=== PATIENT | female | born 1995 | race American Indian/Alaskan Native ===

== ENCOUNTER 2017-02-14 12:37 | Emergency (ER) | payer OTHER ==
[2017-02-14 12:37] VITALS: BMI 31.2
[2017-02-14 13:09] VITALS: BP 109/71; PULSE 98; RESP 18; TEMP 98.1; O2SAT 99
[2017-02-14] MEDS ORDERED: DiphenhydrAMINE 50 mg/ml Inj IM STA (14:10)
--- NOTE | 2017-02-14 14:14 | ED PDOC ---
Arrival/HPI - General Historian: Patient - General Chief Complaint: Abnormal Skin Integrity Time Seen by Provider: 02/14/17 13:26 - History of Present Illness Narrative History of Present Illness (Text): 02/14/17 17:38 Patient reports acute onset of diffuse itchiness to her body and hives to her bilateral inner thighs after eating a sandwich at noon and her symptoms developed immediately afterwards. He reports taking one tablet of Benadryl prior to arrival in the Emergency Department. Patient states that she is eating that sandwich prior with no reaction. Otherwise patient reports (-) throat swelling, (-) tongue / lip swelling, (-) dyspnea, (-) cough, (-) wheezing, (-) abdominal pain, (-) nausea (-) vomiting. The patient has no history of allergic reactions. PMD Shawn (Philip ASENCIO,Vi Carlson) Past Medical History - Provider Review Nursing Documentation Reviewed: Yes - Infectious Disease Hx of Infectious Diseases: None - Psychiatric Hx Substance Use: Yes (marijuana) Family/Social History - Physician Review Nursing Documentation Reviewed: Yes Family/Social History: No Known Family HX Smoking Status: Current Some Days Smoker Hx Alcohol Use: Yes Frequency of alcohol use: Socially Hx Substance Use: Yes (marijuana) Allergies/Home Meds Allergies/Adverse Reactions: Allergies No Known Allergies Allergy (Verified 02/14/17 13:10) Review of Systems - Review of Systems Constitutional: Normal. absent: Fatigue, Weight Change, Fevers ENT: Normal. absent: Hearing Changes, Tinnitus, TMJ Pain Respiratory: Normal. absent: SOB, Cough, Sputum Cardiovascular: Normal. absent: Chest Pain, Palpitations, Edema Musculoskeletal: Normal. absent: Arthralgias, Back Pain, Neck Pain Skin: Normal, Rash, Pruritis. absent: Skin Lesions, Laceration Physical Exam - Physical Exam Narrative Physical Exam (Text): 02/14/17 17:40 GENERAL APPEARANCE: Patient is awake, alert, oriented x 3, in no acute distress. SKIN: (+) Multiple erythematous urticarial lesions to the medial aspect of both thighs. Otherwise (-) excoriations, (-) drainage, (-) crusting of lesions is present. HENT: (-) conjunctival injection, (-) chemosis. Oropharynx: clear (-) tongue or lip swelling, (-) tonsillar exudates, (-) erythema. Airway: patent (-) stridor, (-) hoarseness. Mucous membranes moist. Nares: Patent (-) rhinorrhea. NECK: (-) lymphadenopathy, (-) tenderness. CARDIOVASCULAR: Normal rate and rhythm. (-) murmur, (-) gallop. CHEST: (-) rales, (-) wheezing, (-) dyspnea, (-) stridor. Breath sounds equal bilaterally. ABDOMEN: Soft. (-) tenderness, (-) distention, (-) HSM. NEURO: Mental status: Patient is alert, oriented, and with normal strength and tone. (Philip ASENCIO,Vi Carlson) Vital Signs Temp Pulse Resp BP Pulse Ox 02/14/17 13:06 98.1 F 98 H 18 109/71 99 Medical Decision Making ED Course and Treatment: I was available for consultation during PA evaluation. The chart was reviewed by me, and I agree with disposition. The documented history was done by the physician automatic nailing machine feeder. The documented physical exam was done by the physician automatic nailing machine feeder. The documented procedures were done by the physician automatic nailing machine feeder. (Luc Brandt) 02/14/17 14:11 22 yo F c/o diffuse itchiness with hives to the inner thighs. Patient medicated with prednisone PO, Benadryl IM and Pepcid PO. Based on history, exam and diagnostic results plan will be for outpatient follow -up. Prescription provided. Patient states she fully agrees with and understands discharge instructions. States that she agrees with the plan and disposition. Verbalized and repeated discharge instructions and plan. I have given the patient opportunity to ask any additional questions. Follow up with primary care physician in 1-2 days without fail. Advised to take medication as prescribed. Return to the emergency room at any time for any new or worsening symptoms. (Philip ASENCIO,Vi Carlson) - Medication Orders Current Medication Orders: Discontinued Medications Diphenhydramine HCl (Benadryl) 25 mg IM STAT STA Stop: 02/14/17 14:11 Last Admin: 02/14/17 14:20 Dose: 25 mg Famotidine (Pepcid) 40 mg PO STAT STA Stop: 02/14/17 14:11 Last Admin: 02/14/17 14:20 Dose: 40 mg Prednisone (Prednisone Tab) 40 mg PO STAT STA Stop: 02/14/17 14:11 Last Admin: 02/14/17 14:20 Dose: 40 mg - PA / NETWORK DESKTOP SUPPORT SPECIALIST / Resident Statement / has reviewed & agrees with the documentation as recorded. Disposition/Present on Arrival - Present on Arrival Any Indicators Present on Arrival: No History of DVT/PE: No History of Uncontrolled Diabetes: No Urinary Catheter: No History of Decub. Ulcer: No History Surgical Site Infection Following: None - Disposition Have Diagnosis and Disposition been Completed?: Yes Disposition Time: 14:12 Patient Plan: Discharge - Disposition Diagnosis: Allergic reaction Disposition: HOME/ ROUTINE Condition: GOOD Discharge Instructions (ExitCare): Urticaria (ED), General Allergic Reaction ( ED) Print Language: MALIAN Additional Instructions: Thank you for letting us take care of you today. You were treated for hives, allergic reaction. The emergency medical care you received today was directed at your acute symptoms. If you were prescribed any medication, please fill it and take as directed. It may take several days for your symptoms to resolve. Return to the Emergency Department if your symptoms worsen, do not improve, or if you have any other problems. Please contact your doctor in 2 days for re-evaluation and follow up / or call one of the physicians/clinics you have been referred to that are listed on the Patient Visit Information form that is included in your discharge packet. Bring any paperwork you were given at discharge with you along with any medications you are taking to your follow up visit. Our treatment cannot replace ongoing medical care by a primary care provider (PCP) outside of the emergency department. Thank you for allowing the [facility] team to be part of your care today. Prescriptions: DiphenhydrAMINE [Benadryl] 25 mg PO TID #20 cap Famotidine [Pepcid] 40 mg PO DAILY #20 tablet predniSONE [predniSONE Tab] 40 mg PO DAILY #8 tab Referrals: Ophelia Escobar MD [Primary Care Provider] - Follow up with primary Forms: WORK NOTE
== END 2017-02-14 14:38 | disposition home or self-care (01) ==
LOC: ED 12:37
DX: T78.1XXA Other adverse food reactions, not elsewhere classified, initial encounter (principal); L50.9 Urticaria, unspecified
CPT/HCPCS: 96372; 99282; J1200

== ENCOUNTER 2017-05-25 18:59 | Emergency (ER) | payer OTHER ==
[2017-05-25 18:59] VITALS: BMI 31.2
[2017-05-25 19:52] VITALS: PULSE 78; RESP 18; TEMP 99; O2SAT 99
--- NOTE | 2017-05-25 19:53 | ED PDOC ---
Arrival/HPI - General Chief Complaint: Female Genitourinary Time Seen by Provider: 05/25/17 19:44 Historian: Patient - History of Present Illness Narrative History of Present Illness (Text): 05/25/17 19:49 22yr old female presents today with dysuria and urinary frequency since last night. Patient states last night she was going to the bathroom more frequently. Patient states today she developed dysuria. She denies vaginal bleeding or vaginal discharge. Denies abdominal pain. No chest pain or shortness of breath. Denies fevers or chills. Denies nausea vomiting diarrhea or constipation. Denies back pain. No medications taken for pain at home. Patient's that she is a history of urinary tract infections in the past. Time/Duration: Other (last night) Symptom Onset: Sudden Symptom Course: Intermittent Quality: Burning Severity Level: 2 Past Medical History - Provider Review Nursing Documentation Reviewed: Yes - Travel History Have you recently traveled outside [place] w/in the past 3 mons?: No - Infectious Disease Hx of Infectious Diseases: None - Tetanus Immunization Tetanus Immunization: Unknown - Psychiatric Hx Substance Use: Yes (marijuana) Family/Social History - Physician Review Nursing Documentation Reviewed: Yes Family/Social History: Unknown Family HX Smoking Status: Current Some Days Smoker Hx Alcohol Use: Yes Hx Substance Use: Yes (marijuana) Allergies/Home Meds Allergies/Adverse Reactions: Allergies No Known Allergies Allergy (Verified 02/14/17 13:10) Review of Systems - Review of Systems Constitutional: absent: Fatigue, Fevers Respiratory: absent: SOB, Cough Cardiovascular: absent: Chest Pain, Palpitations Gastrointestinal: absent: Abdominal Pain, Nausea, Vomiting Genitourinary Female: Dysuria, Frequency, Hematuria. absent: Urine Output Changes, Vaginal Bleeding, Vaginal Discharge Musculoskeletal: absent: Arthralgias, Back Pain, Neck Pain Skin: absent: Rash, Pruritis Neurological: absent: Dizziness Psychiatric: absent: Anxiety, Depression Physical Exam Vital Signs Reviewed: Yes Vital Signs Temp Pulse Resp Pulse Ox 05/25/17 19:39 99.0 F 78 18 99 Temperature: Afebrile Blood Pressure: Normal Pulse: Regular Respiratory Rate: Normal Appearance: Positive for: Well-Appearing, Non-Toxic, Comfortable Pain Distress: None Mental Status: Positive for: Alert and Oriented X 3 - Systems Exam Head: Present: Atraumatic Mouth: Present: Moist Mucous Membranes Neck: Present: Normal Range of Motion Respiratory/Chest: Present: Clear to Auscultation, Good Air Exchange. No: Respiratory Distress, Accessory Muscle Use Cardiovascular: Present: Regular Rate and Rhythm, Normal S1, S2. No: Murmurs Abdomen: No: Tenderness, Distention, Rebound, Guarding Back: Present: Normal Inspection. No: CVA Tenderness, Midline Tenderness, Paraspinal Tenderness Upper Extremity: Present: Normal ROM Lower Extremity: Present: Normal ROM Neurological: Present: GCS=15, Gait Normal Skin: Present: Warm, Dry, Normal Color. No: Rashes Psychiatric: Present: Alert, Oriented x 3 Medical Decision Making ED Course and Treatment: 05/25/17 20:40 Patient is nontoxic well-appearing in no distress with stable vital signs abdomen soft non tender; non distended. Urinalysis: + blood, + many bacteria Urine culture: pending Pyridium, macrobid advised follow up with the primary care physician within the next 2 days. advised immediate return if symptoms worsen,persist or if new symptoms develop. Patient verbalizes understanding of discharge instructions and need for immediate followup. Impression: Urinary tract infection Motrin every 6 hours as needed for pain macrobid; 1 tablet twice daily x 10 days. Pyridium one tablet twice daily x3 days Followup with primary care physician within the next 2 days Follow up with the urologist for the next 2 days Return if symptoms worsen persist or if new symptoms develop - Lab Interpretations Lab Results: Lab Results 05/25/17 20:03: Urine Color Yellow, Urine Appearance Sl cloudy, Urine pH 6.0, Ur Specific [place] 1.020, Urine Protein Trace H, Urine Glucose (UA) Negative, Urine Ketones Negative, Urine Blood Large H, Urine Nitrate Negative, Urine Bilirubin Negative, Urine Urobilinogen 0.2, Ur Leukocyte Esterase Negative, Urine RBC Tntc, Urine WBC 5 - 10, Ur Epithelial Cells 4 - 5, Urine Bacteria Mod - Medication Orders Current Medication Orders: Discontinued Medications Nitrofurantoin Macrocrystals (Macrobid) 100 mg PO STAT STA Stop: 05/25/17 20:32 Phenazopyridine HCl (Pyridium) 200 mg PO STAT STA Stop: 05/25/17 20:32 Disposition/Present on Arrival - Present on Arrival Any Indicators Present on Arrival: No History of DVT/PE: No History of Uncontrolled Diabetes: No Urinary Catheter: No History of Decub. Ulcer: No History Surgical Site Infection Following: None - Disposition Have Diagnosis and Disposition been Completed?: Yes Diagnosis: Urinary tract infection, Hematuria Disposition: HOME/ ROUTINE Disposition Time: 20:42 Patient Plan: Discharge Condition: GOOD Discharge Instructions (ExitCare): Urinary Tract Infection in Women (ED) Additional Instructions: Motrin every 6 hours as needed for pain macrobid; 1 tablet twice daily x 10 days. Pyridium one tablet twice daily x3 days Followup with primary care physician within the next 2 days Follow up with the urologist for the next 2 days Return if symptoms worsen persist or if new symptoms develop Prescriptions: Nitrofurantoin Macrocrystals [Macrobid] 100 mg PO BID #20 cap Phenazopyridine [Phenazopyridine HCl] 200 mg PO BID #6 tab Referrals: Arpan Moss MD [Staff Provider] - Follow up with primary Dori Paz MD [Staff Provider] - Follow up with primary Forms: [employer] (Mosotho)
[2017-05-25 20:14] LABS: URINE BILIRUBIN NEGATIVE (NEGATIVE); URINE BLOOD LARGE (NEGATIVE); URINE GLUCOSE (UA) NEGATIVE (NEGATIVE); URINE KETONE NEGATIVE (NEGATIVE); URINE LEUKOCYTE ESTERASE NEGATIVE Leu/uL (NEGATIVE); URINE PROTEIN TRACE mg/dL (<30 mg/dL); URINE UROBILINOGEN 0.2 E.U./dL (<1 E.U./dL)
[2017-05-25 20:17] LABS: URINE APPEARANCE SL CLOUDY (CLEAR); URINE COLOR YELLOW (YELLOW)
[2017-05-25 20:26] LABS: URINE BACTERIA MOD (NEG); URINE RBC TNTC /hpf (0-2)
[2017-05-25 21:13] VITALS: BP 131/69
== END 2017-05-25 21:16 | disposition home or self-care (01) ==
LOC: ED 18:59
DX: N39.0 Urinary tract infection, site not specified (principal); R31.9 Hematuria, unspecified

== ENCOUNTER 2017-05-28 21:57 | Emergency (ER) | payer OTHER ==
[2017-05-28 21:57] VITALS: BMI 31.2
[2017-05-28] MEDS ORDERED: Sodium Chloride 0.9% 1,000 ML IV STA (22:26)
--- NOTE | 2017-05-28 22:36 | ED PDOC ---
Arrival/HPI - General Historian: Patient - History of Present Illness Time/Duration: 1-3 hours Symptom Onset: Sudden Symptom Course: Intermittent Quality: Aching Severity Level: 7 - General Chief Complaint: Abdominal Pain Time Seen by Provider: 05/28/17 22:10 - History of Present Illness Narrative History of Present Illness (Text): 05/28/17 22:33 22-year-old female presents today with abdominal pain that started this evening. Patient states she has been on antibiotics for urinary tract infection that she started yesterday. Patient states today she developed nausea and vomiting and developed lower abdominal pain. Patient states 2 days ago she was only having urinary frequency and dysuria. Patient states since taking the medications the dysuria has stopped. Patient states she now has an achy pain in the lower abdomen that is nonradiating. She denies vaginal bleeding or discharge. Denies back pain. Complaining of subjective fevers at home. No medications have been taken for pain. (Suzie Soto) Past Medical History - Provider Review Nursing Documentation Reviewed: Yes - Travel History Have you recently traveled outside [place] w/in the past 3 mons?: No - Infectious Disease Hx of Infectious Diseases: None - Tetanus Immunization Tetanus Immunization: Unknown - Psychiatric Hx Substance Use: Yes (marijuana) - Anesthesia Hx Anesthesia: No Family/Social History - Physician Review Nursing Documentation Reviewed: Yes Family/Social History: Unknown Family HX Smoking Status: Current Some Days Smoker Hx Alcohol Use: Yes Hx Substance Use: Yes (marijuana) Allergies/Home Meds Allergies/Adverse Reactions: Allergies No Known Allergies Allergy (Verified 02/14/17 13:10) Review of Systems - Review of Systems Constitutional: Fevers. absent: Fatigue Respiratory: absent: SOB, Cough Cardiovascular: absent: Chest Pain, Palpitations Gastrointestinal: Abdominal Pain, Nausea, Vomiting. absent: Constipation, Diarrhea Genitourinary Female: absent: Dysuria, Frequency, Hematuria, Urine Output Changes, Vaginal Bleeding, Vaginal Discharge Musculoskeletal: absent: Arthralgias, Back Pain, Neck Pain Skin: absent: Rash, Pruritis Neurological: absent: Headache, Dizziness Psychiatric: absent: Anxiety, Depression, Suicidal Ideation Physical Exam Vital Signs Reviewed: Yes Temperature: Afebrile Blood Pressure: Normal Pulse: Regular Respiratory Rate: Normal Appearance: Positive for: Well-Appearing, Non-Toxic, Comfortable Pain Distress: None Mental Status: Positive for: Alert and Oriented X 3 - Systems Exam Head: Present: Atraumatic Mouth: Present: Moist Mucous Membranes Neck: Present: Normal Range of Motion Respiratory/Chest: Present: Clear to Auscultation, Good Air Exchange. No: Respiratory Distress, Accessory Muscle Use Cardiovascular: Present: Regular Rate and Rhythm, Normal S1, S2. No: Murmurs Abdomen: Present: Tenderness (+ suprapubic, rlq, llq tenderness), Normal Bowel Sounds. No: Distention, Peritoneal Signs, Rebound, Guarding Genitourinary/Pelvic Exam: Present: Normal External Genitalia, Vaginal Discharge (slight white vaginal discharge), Cervical os Closed, Other ( chaparoned by Nella YOO). No: Vaginal Bleeding, Vaginal Lesions, Adenexal Tenderness, Adenexal Mass, Cervical Motion Tendernes, Odor Back: Present: Normal Inspection. No: CVA Tenderness, Midline Tenderness, Paraspinal Tenderness Upper Extremity: Present: Normal Inspection Lower Extremity: Present: Normal Inspection Neurological: Present: GCS=15, Speech Normal Skin: Present: Warm, Dry Psychiatric: Present: Alert, Oriented x 3 Vital Signs Temp Pulse Resp BP Pulse Ox 05/29/17 04:40 65 18 119/80 98 05/28/17 22:23 99.0 F 82 20 119/73 99 Medical Decision Making ED Course and Treatment: 05/29/17 05:50 On re-evaluation, patient feels better and is in no acute distress. CT is negative. I have discussed the results and plan with the patient, who expresses understanding. Patient in agreement with plan to be discharged home. Patient is stable for discharge. Patient was instructed to follow up with physician or return if symptoms worsen or new concerning symptoms arise. (Jordan Patrick DO) 05/28/17 22:36 Patient is nontoxic well appearing with stable vital signs presenting with intermittent lower abdominal pain CBC wnl CMP wnl Lipase: wnl Urinalysis: + nitrates. pt currently on macrobid; had negative urine culture 2 days ago. CAT scan: PENDING Patient reassessment: pt with continued pain; c/o rlq pain; morphine added. 05/29/17 02:03 case signed out to dr. patrick; pending CT results, re-eval and disposition. (Suzie Soto) - Lab Interpretations Lab Results: 05/28/17 23:10 05/28/17 23:10 Lab Results 05/28/17 23:10: WBC 8.2, RBC 4.39, Hgb 12.1, Hct 35.6 L, MCV 81.1, MCH 27.6, MCHC 34.0, RDW 13.5, Plt Count 265, MPV 9.5, Gran % 62.1, Lymph % (Auto) 26.4, [place] % (Auto) 8.6 H, Eos % (Auto) 2.7, Baso % (Auto) 0.2, Gran # 5.07, Lymph # 2.2, [place] # 0.7 H, Eos # 0.2, Baso # 0.02 05/28/17 23:10: Sodium 139, Potassium 4.1, Chloride 103, Carbon Dioxide 27, Anion Gap 13, BUN 14, Creatinine 0.8, Est GFR ( Amer) > 60, Est GFR (Non- Af Amer) > 60, Random Glucose 103, Calcium 9.6, Total Bilirubin 0.6, AST 30, ALT 24, Alkaline Phosphatase 74, Total Protein 7.3, Albumin 3.9, Globulin 3.3, Albumin/Globulin Ratio 1.2, Lipase 53 05/28/17 10:35: Urine Color [place], Urine Appearance Slight-cloudy, Urine pH 6.5 , Ur Specific [place] 1.010, Urine Protein 100 H, Urine Glucose (UA) 250 H, Urine Ketones Trace H, Urine Blood Negative, Urine Nitrate Positive H, Urine Bilirubin Negative, Urine Urobilinogen >=8.0, Ur Leukocyte Esterase Trace H, Urine RBC 1 - 3, Urine WBC 2 - 5, Ur Epithelial Cells 3 - 4 - RAD Interpretation Radiology Orders: 05/28/17 22:32 ABD & PELVIS IV CONTRAST ONLY [CT] Stat - Medication Orders Current Medication Orders: Discontinued Medications Sodium Chloride (Sodium Chloride 0.9%) 1,000 mls @ 999 mls/hr IV .Q1H1M STA Stop: 05/28/17 23:26 Last Admin: 05/28/17 23:12 Dose: 999 mls/hr eMAR Start Stop Document 05/28/17 23:12 RD (Rec: 05/28/17 23:12 RD [id number]) Intravenous Solution Start Date 05/28/17 Start Time 23:12 End Date 05/29/17 End time 00:12 Total Infusion Time 60 Iohexol (Omnipaque 350 100 Ml) Confirm Administered Dose 350 mg .ROUTE .STK-MED ONE Stop: 05/28/17 23:43 Ketorolac Tromethamine (Toradol) 30 mg IVP STAT STA Stop: 05/28/17 22:33 Last Admin: 05/28/17 23:12 Dose: 30 mg MAR Pain Assessment Document 05/28/17 23:12 RD (Rec: 05/28/17 23:13 RD [id number]) Pain Reassessment Is this a pain reassessment? No Sleep Is patient sleeping during reassessment? No Presence of Pain Presence of Pain Yes IVP Administration Document 05/28/17 23:12 RD (Rec: 05/28/17 23:13 RD [id number]) Charges for Administration # of IVP Administrations 1 Morphine Sulfate (Morphine) 2 mg IVP STAT STA Stop: 05/29/17 01:11 Last Admin: 05/29/17 01:21 Dose: 2 mg Ondansetron HCl (Zofran Inj) 4 mg IVP STAT STA Stop: 05/28/17 22:33 Last Admin: 05/28/17 23:13 Dose: 4 mg IVP Administration Document 05/28/17 23:13 RD (Rec: 05/28/17 23:13 RD [id number]) Charges for Administration # of IVP Administrations 1 Disposition/Present on Arrival - Present on Arrival Any Indicators Present on Arrival: No History of DVT/PE: No History of Uncontrolled Diabetes: No Urinary Catheter: No History of Decub. Ulcer: No History Surgical Site Infection Following: None - Disposition Have Diagnosis and Disposition been Completed?: Yes Disposition Time: 05:50 Patient Plan: Discharge - Disposition Diagnosis: Abdominal pain Disposition: HOME/ ROUTINE Condition: IMPROVED Discharge Instructions (ExitCare): Acute Abdominal Pain (ED) Additional Instructions: Thank you for letting us take care of you today. You were treated for abdominal pain. The emergency medical care you received today was directed at your acute symptoms. If you were prescribed any medication, please fill it and take as directed. It may take several days for your symptoms to resolve. Return to the Emergency Department if your symptoms worsen, do not improve, or if you have any other problems. Please contact your doctor or call one of the physicians/clinics you have been referred to that are listed on the Patient Visit Information form that is included in your discharge packet. Bring any paperwork you were given at discharge with you along with any medications you are taking to your follow up visit. Our treatment cannot replace ongoing medical care by a primary care provider (PCP) outside of the emergency department. Thank you for allowing the [facility] team to be part of your care today. Follow up with your primary doctor in 2-3 days for re-evaluation. Stop taking the Macrobid and start other antibiotic. Prescriptions: Ciprofloxacin [Cipro] 250 mg PO BID #6 tab Referrals: Ophelia Escobar MD [Primary Care Provider] - Follow up with primary Forms: [employer] (Persian)
[2017-05-28 22:38] VITALS: TEMP 99
[2017-05-28 22:52] LABS: PH,URINE 6.5 (4.7-8.0); URINE BILIRUBIN NEGATIVE (NEGATIVE); URINE BLOOD NEGATIVE (NEGATIVE); URINE GLUCOSE (UA) 250 mg/dL (NEGATIVE); URINE KETONE TRACE mg/dL (NEGATIVE); URINE LEUKOCYTE ESTERASE TRACE Leu/uL (NEGATIVE); URINE PROTEIN 100 mg/dL (<30 mg/dL); URINE UROBILINOGEN >=8.0 E.U./dL (<1 E.U./dL)
[2017-05-28 22:55] LABS: URINE APPEARANCE SLIGHT-CLOUDY (CLEAR); URINE COLOR ORANGE (YELLOW)
[2017-05-28 23:29] LABS: BASO # 0.02 K/mm3 (0.0-2.0); BASO % 0.2 % (0.0-3.0); EOS # 0.2 (0.0-0.7); EOS % 2.7 % (1.5-5.0); GRAN # 5.07 (1.4-6.5); GRAN % 62.1 % (50.0-68.0); HEMATOCRIT 35.6 % (36.0-48.0); LYMPH # 2.2 (1.2-3.4); LYMPH % 26.4 % (22.0-35.0); MEAN CELL VOLUME 81.1 fl (80.0-105.0); MEAN CORPUSCULAR HEMOGLOBIN 27.6 pg (25.0-35.0); MEAN PLATELET VOLUME 9.5 fl (7.0-11.0); MONO # 0.7 (0.1-0.6); MONO % 8.6 % (1.0-6.0); RED CELL DISTRIBUTION WIDTH 13.5 % (11.5-14.5); WHITE BLOOD COUNT 8.2 10^3/ul (4.5-11.0)
[2017-05-28 23:31] LABS: ALB/GLOB RATIO 1.2 (1.1-1.8); ALKALINE PHOSPHATASE 74 U/L (38-126); ALT/SGPT 24 U/L (7-56); AST/SGOT 30 U/L (14-36); BILIRUBIN,TOTAL 0.6 mg/dL (0.2-1.3); BLOOD UREA NITROGEN 14 mg/dL (7-21); CALCIUM 9.6 mg/dL (8.4-10.5); CARBON DIOXIDE 27 mmol/L (21-33); CHLORIDE 103 mmol/L (98-107); GFR AFRICAN-AMERICAN > 60; GLUCOSE,RANDOM 103 mg/dL (70-110); LIPASE 53 U/L (23-300); POTASSIUM 4.1 mmol/L (3.6-5.0); SODIUM 139 mmol/L (132-148); TOTAL PROTEIN 7.3 g/dL (5.8-8.3)
[2017-05-28] MEDS ORDERED: Iohexol 350 MG/100 ML VIAL ONE (23:42)
[2017-05-29] MEDS ORDERED: Morphine 2 mg/ml ISec IVP STA (01:10)
[2017-05-29 04:41] VITALS: BP 119/80; PULSE 65; RESP 18; O2SAT 98
--- NOTE | 2017-05-29 05:08 | CT ---
EXAM: CT Abdomen and Pelvis With Intravenous Contrast EXAM DATE/TIME: 05/28/2017 10:32 PM CLINICAL HISTORY: 22 years old, female; Pain; Abdominal pain; Generalized; Additional info: Lower abdominal tenderness TECHNIQUE: Axial computed tomography images of the abdomen and pelvis with intravenous contrast. All CT scans at this facility use one or more dose reduction techniques, viz.: automated exposure control; ma/kV adjustment per patient size (including targeted exams where dose is matched to indication; i.e. head); or iterative reconstruction technique. Coronal and sagittal reformatted images were created and reviewed. COMPARISON: US - OB TRANSVAGINAL 10/19/2016 2:22:22 PM FINDINGS: There are no arterial images provided. There are only delayed images with contrast in the ureters and urinary bladder. Nonvisualization of the gallbladder. The liver, spleen, pancreas, and kidneys appear grossly normal. The bowel appears normal. A normal appendix is identified series 2 images 217 through 233. The uterus and ovaries appear grossly normal. IMPRESSION: No acute findings.
== END 2017-05-29 06:10 | disposition home or self-care (01) ==
LOC: ED 21:57
DX: R10.9 Unspecified abdominal pain (principal)
CPT/HCPCS: 74177; 80053; 81001; 83690; 85025; 87086; 87491; 87591; 96361; 96374; 96375; 99284; J1885; J2270; J2405; J7040; Q9967

== ENCOUNTER 2017-08-03 21:02 | Emergency (ER) | payer OTHER ==
[2017-08-03 21:03] VITALS: BMI 31.2
[2017-08-03 21:12] VITALS: BP 135/84; PULSE 92; RESP 16; TEMP 98.1; O2SAT 100
--- NOTE | 2017-08-03 21:36 | ED PDOC ---
Arrival/HPI - General Historian: Patient - History of Present Illness Time/Duration: < week Symptom Onset: Gradual Symptom Course: Worsening Activities at Onset: Rest, Light Context: Home - General Chief Complaint: ENT Problem - History of Present Illness Narrative History of Present Illness (Text): 08/03/17 21:37 Ms. Eris Hastings is a 22 year old AAF with no significant past medical history who presents to the [facility] ED with a chief complaint of tactile fevers, chills, headache, sinus congestion, ear pain, rhinorrhea, and non-productive cough. Patient reports that these symptoms started two days ago and have not responded to OTC Sudafed and general supportive treatment. Patient denies any sick contacts or recent travel. Patient also denies any changes in her vision, neck stiffness, sore throat, chest pain, palpitations, SOB, wheezing, sputum production, abdominal pain, N/V/D/C, burning/pain with urination, rashes or any numbness/tingling/weakness of any extremity. (Gavin Shepherd) Past Medical History - Provider Review Nursing Documentation Reviewed: Yes - Travel History Have you recently traveled outside [place] w/in the past 3 mons?: No - Past History Past History: No Previous - Infectious Disease Hx of Infectious Diseases: None - Tetanus Immunization Tetanus Immunization: Unknown - Psychiatric Hx Substance Use: Yes (marijuana) - Anesthesia Hx Anesthesia: No Family/Social History - Physician Review Nursing Documentation Reviewed: Yes Family/Social History: No Known Family HX Smoking Status: Current Some Days Smoker Hx Alcohol Use: Yes Hx Substance Use: Yes (marijuana) Allergies/Home Meds Allergies/Adverse Reactions: Allergies No Known Allergies Allergy (Verified 08/03/17 21:12) Review of Systems - Physician Review All systems were reviewed & negative as marked: Yes - Review of Systems Constitutional: Fevers (Tactile at home), Other (Chills). absent: Normal Eyes: Normal ENT: Sore Throat, Rhinorrhea, Sinus Congestion, Other (ear pain). absent: Normal Respiratory: Cough, Sputum. absent: Normal, SOB, Wheezing Cardiovascular: Normal Gastrointestinal: Normal. absent: Abdominal Pain, Constipation, Diarrhea, Nausea, Vomiting Genitourinary Female: Normal. absent: Dysuria, Vaginal Discharge Musculoskeletal: Normal, Myalgias (Diffuse). absent: Neck Pain Skin: Normal. absent: Rash Neurological: Headache. absent: Normal, Dizziness, Focal Weakness Endocrine: Normal Hemo/Lymphatic: Normal Psychiatric: Normal Physical Exam Vital Signs Reviewed: Yes Temperature: Afebrile Blood Pressure: Normal Pulse: Regular Respiratory Rate: Normal Appearance: Positive for: Well-Appearing, Non-Toxic, Comfortable Pain Distress: None Mental Status: Positive for: Alert and Oriented X 3 - Systems Exam Head: Present: Atraumatic, Normocephalic Pupils: Present: PERRL Extroacular Muscles: Present: EOMI Conjunctiva: Present: Normal Ears: Present: Normal, NORMAL TM, Normal Canal. No: Erythema, TM Bulging Mouth: Present: Moist Mucous Membranes Pharnyx: Present: ERYTHEMA. No: Normal, EXUDATE, TONSILS ENLARGED, Peritonsilar Swelling, Uvular Deviation, Muffled/Hoarse Voice, Soft Palate/ Uvular Edema Nose (External): Present: Atraumatic Nose (Internal): Present: Normal Inspection. No: No Active Bleeding, Boggy, Clear Mucous, Rhinorrhea Neck: Present: Normal Range of Motion, Paraspinal Tenderness (Bilaterally), Trachea Midline. No: Meningeal Signs, MIDLINE TENDERNESS, JVD, Lymphadenopathy Respiratory/Chest: Present: Clear to Auscultation, Good Air Exchange. No: Respiratory Distress, Accessory Muscle Use, Wheezes, Decreased Breath Sounds, Rales, Rhonchi, Tachypneic, Tender to Palpation Cardiovascular: Present: Regular Rate and Rhythm, Normal S1, S2, Peripheal Pulses Present. No: Murmurs, Irregular Rhythm, Tachycardic, Bradycardic, Rub, Gallop, Muffled Abdomen: Present: Normal Bowel Sounds. No: Tenderness, Distention, Peritoneal Signs Back: Present: Normal Inspection. No: CVA Tenderness, Midline Tenderness, Paraspinal Tenderness, Pain with Leg Raise Upper Extremity: Present: Normal Inspection. No: Cyanosis, Edema Lower Extremity: Present: Normal Inspection. No: Edema Neurological: Present: GCS=15, CN II-XII Intact, Speech Normal Skin: Present: Warm, Dry, Normal Color. No: Rashes Lymphatic: No: Cervical Adenopathy Psychiatric: Present: Alert, Oriented x 3, Normal Insight, Normal Concentration Vital Signs Temp Pulse Resp BP Pulse Ox 08/03/17 21:09 98.1 F 92 H 16 135/84 100 Medical Decision Making ED Course and Treatment: Impression: Pt seen and evaluated with medical receptionist biller. Pt, with no significant past medical history, presented for fever, chills, cough, sinus congestion, ear pain , rhinorrhea, and headache. Aware and agree with HPI, clinical findings, plan, and management. Plan: -- Reassess and disposition (Ra Estes) 08/03/17 21:41 Impression: 22 year old AAF with no significant past medical history who presents to the [facility] ED with a chief complaint of tactile fevers, chills, headache, sinus congestion, ear pain, rhinorrhea, and non-productive cough for two days Plan: -Nina D BID for 10 days -Augmentin 875mg BID for 10 days Prior Visits: Patient was seen and evaluated for UTI in 05/22 (Gavin Shepherd) Disposition/Present on Arrival - Present on Arrival Any Indicators Present on Arrival: No History of DVT/PE: No History of Uncontrolled Diabetes: No Urinary Catheter: No History of Decub. Ulcer: No History Surgical Site Infection Following: None - Disposition Have Diagnosis and Disposition been Completed?: Yes Disposition Time: 21:45 Patient Plan: Discharge - Disposition Diagnosis: Sinus congestion Disposition: HOME/ ROUTINE Condition: STABLE Discharge Instructions (ExitCare): Sinusitis (ED), Viral Syndrome (ED) Additional Instructions: Ms. Eris Hastings, thank you for letting us take care of you today. Your provider was Dr. Estes. You were treated for sinusitis. The emergency medical care you received today was directed at your acute symptoms. If you were prescribed any medication, please fill it and take as directed. It may take several days for your symptoms to resolve. Return to the Emergency Department if your symptoms worsen, do not improve, or if you have any other problems. Please contact your doctor or call one of the physicians/clinics you have been referred to that are listed on the Patient Visit Information form that is included in your discharge packet. Bring any paperwork you were given at discharge with you along with any medications you are taking to your follow up visit. Our treatment cannot replace ongoing medical care by a primary care provider (PCP) outside of the emergency department. PLEASE FOLLOW UP WITH YOUR PRIMARY CARE DOCTOR WITHIN ONE WEEK Thank you for allowing the [facility] team to be part of your care today. Prescriptions: Amoxicillin/Clavulanate [Augmentin 875 MG-125 MG] 1 tab PO BID #20 tab Fexofenadine/Pseudoephedrine [Nina-D 12 Hour Tablet] 1 each PO BID #20 tab.er.12h Forms: [facility] (Turkish), WORK NOTE
== END 2017-08-03 21:55 | disposition home or self-care (01) ==
LOC: ED 21:02
DX: R09.81 Nasal congestion (principal)

== ENCOUNTER 2017-08-12 11:55 | Emergency (ER) | payer OTHER ==
[2017-08-12 12:03] VITALS: RESP 18; TEMP 98.4; O2SAT 100; BMI 31.0
[2017-08-12 12:33] LABS: BASO # 0.03 K/mm3 (0.0-2.0); BASO % 0.4 % (0.0-3.0); EOS # 0.3 (0.0-0.7); EOS % 3.8 % (1.5-5.0); GRAN # 4.63 (1.4-6.5); GRAN % 62.5 % (50.0-68.0); HEMATOCRIT 38.8 % (36.0-48.0); LYMPH # 1.7 (1.2-3.4); LYMPH % 23.4 % (22.0-35.0); MEAN CELL VOLUME 81.7 fl (80.0-105.0); MEAN CORPUSCULAR HEMOGLOBIN 27.6 pg (25.0-35.0); MEAN CORPUSCULAR HGB CONC 33.8 g/dl (31.0-37.0); MEAN PLATELET VOLUME 9.8 fl (7.0-11.0); MONO # 0.7 (0.1-0.6); MONO % 9.9 % (1.0-6.0); RED CELL DISTRIBUTION WIDTH 13.9 % (11.5-14.5); WHITE BLOOD COUNT 7.4 10^3/ul (4.5-11.0)
[2017-08-12 12:49] LABS: URINE BILIRUBIN NEGATIVE (NEGATIVE); URINE BLOOD TRACE-INTACT (NEGATIVE); URINE GLUCOSE (UA) NEGATIVE (NEGATIVE); URINE KETONE NEGATIVE (NEGATIVE); URINE LEUKOCYTE ESTERASE TRACE Leu/uL (NEGATIVE); URINE PROTEIN NEGATIVE mg/dL (<30 mg/dL)
[2017-08-12 12:50] LABS: ALB/GLOB RATIO 1.1 (1.1-1.8); ALKALINE PHOSPHATASE 86 U/L (38-126); ALT/SGPT 20 U/L (7-56); AST/SGOT 21 U/L (14-36); BILIRUBIN,TOTAL 0.8 mg/dL (0.2-1.3); BLOOD UREA NITROGEN 7 mg/dL (7-21); CALCIUM 9.5 mg/dL (8.4-10.5); CARBON DIOXIDE 27 mmol/L (21-33); CHLORIDE 106 mmol/L (98-107); GFR AFRICAN-AMERICAN > 60; GLUCOSE,RANDOM 95 mg/dL (70-110); POTASSIUM 3.9 mmol/L (3.6-5.0); SODIUM 141 mmol/L (132-148); TOTAL PROTEIN 7.2 g/dL (5.8-8.3)
[2017-08-12 12:51] LABS: URINE APPEARANCE CLEAR (CLEAR); URINE COLOR YELLOW (YELLOW)
[2017-08-12 12:56] LABS: URINE AMORPHOUS SEDIMENT FEW; URINE BACTERIA MANY (NEG)
[2017-08-12 12:59] LABS: D DIMER < 200 ng/mL (0-243); INR 1.12 (0.93-1.08); PARTIAL THROMBOPLASTIN TIME 30.5 Seconds (25.1-36.5)
--- NOTE | 2017-08-12 14:07 | ED PDOC ---
Arrival/HPI - General Chief Complaint: Chest Pain Time Seen by Provider: 08/12/17 11:57 Historian: Patient - Critical Care Narrative Critical Care (Text): you were treated in the ED today for chest pain otherwise without any nausea/ vomiting/headache/dizziness/difficulty breathing/chest pain/abdomen pain/ numbness/tingling/loss of limb function/pain with urination/travel/prior blood clots/prior cancer history/thoughts to harm yourself or others or hallucinations. recent control use. stopped smoking and marijuana use. 08/12/17 14:11 - History of Present Illness Narrative History of Present Illness (Text): you were treated in the ED today for history chest pain for 1 day, otherwise without any nausea/vomiting/headache/dizziness/difficulty breathing/abdomen pain /numbness/tingling/loss of limb function/pain with urination/travel prior blood clots/prior cancer history/thoughts to harm yourself or others or hallucinations or drug use or family history of heart attacks. you have recently used control. you have recently stopped smoking marijuana and regular smoking which you were counselled to stop. 08/12/17 14:03 Time/Duration: 24 hours Symptom Onset: Gradual Symptom Course: Improving Quality: Aching Severity Level: 2 Activities at Onset: Rest Context: Sitting Past Medical History - Provider Review Nursing Documentation Reviewed: Yes - Travel History Have you recently traveled outside [place] w/in the past 3 mons?: No - Past History Past History: No Previous - Infectious Disease Hx of Infectious Diseases: None - Tetanus Immunization Tetanus Immunization: Unknown - Cardiac Hx Cardiac Disorders: No Hx Angina: No Hx Atrial Fibrillation: No Hx Coronary Artery Disease: No Hx Cardiac Arrhythmia: No Hx Circulatory Problems: No Hx Congestive Heart Failure: No Hx AR: No Hx Heart Murmur: No Hx Heart Transplant: No Hx Hyperlipemia: No Hx Hypertension: No Hx Hypotension: No Hx Internal Defibrillator: No Hx Mitral Valve Prolapse: No Hx Pacemaker: No Hx Peripheral Edema: No Hx Peripheral Vascular Disease: No - Pulmonary Hx Respiratory Disorders: No Hx Asthma: No Hx Bronchitis: No Hx Chronic Obstructive Pulmonary Disease (COPD): No Hx Emphysema: No Hx Lung Cancer: No Hx Pneumonia: No Hx Pulmonary Edema: No Hx Pulmonary Embolism: No Hx Respiratory Aspiration: No Hx Respiratory Tract Infection: No Hx Sleep Apnea: No Hx Tuberculosis: No - Neurological Hx Neurological Disorder: No - HEENT Hx HEENT Disorder: No - Renal Hx Renal Disorder: No - Endocrine/Metabolic Hx Endocrine Disorders: No - Hematological/Oncological Hx Blood Disorders: No - Integumentary Hx Dermatological Disorder: No - Musculoskeletal/Rheumatological Hx Musculoskeletal Disorders: No - Gastrointestinal Hx Gastrointestinal Disorders: No - Genitourinary/Gynecological Hx Sexually Transmitted Diseases: No - Psychiatric Hx Bipolar Disorder: No Hx Substance Use: Yes (marijuana) - Anesthesia Hx Anesthesia: No Family/Social History - Physician Review Nursing Documentation Reviewed: Yes Family/Social History: No Known Family HX Smoking Status: Current Some Days Smoker Hx Alcohol Use: Yes Hx Substance Use: Yes (marijuana) Route: Smoking/Inhalation Allergies/Home Meds Allergies/Adverse Reactions: Allergies Penicillins Allergy (Verified 08/12/17 12:16) ANAPHYLAXIS Review of Systems - Physician Review All systems were reviewed & negative as marked: Yes - Review of Systems Constitutional: Normal Eyes: Normal ENT: Normal Respiratory: Normal Cardiovascular: Chest Pain Gastrointestinal: Normal Genitourinary Female: Normal Musculoskeletal: Normal Skin: Normal Neurological: Normal Endocrine: Normal Hemo/Lymphatic: Normal Psychiatric: Normal Physical Exam Vital Signs Reviewed: Yes Vital Signs Temp Pulse Resp BP Pulse Ox 08/12/17 13:48 81 18 124/68 100 08/12/17 12:02 98.4 F 89 18 129/73 100 Temperature: Afebrile Blood Pressure: Normal Pulse: Regular Respiratory Rate: Normal Appearance: Positive for: Well-Appearing Pain Distress: None Mental Status: Positive for: Alert and Oriented X 3 - Systems Exam Head: Present: Atraumatic, Normocephalic Pupils: Present: PERRL Extroacular Muscles: Present: EOMI Conjunctiva: Present: Normal Ears: Present: Normal Mouth: Present: Moist Mucous Membranes Pharnyx: Present: Normal Nose (External): Present: Atraumatic Nose (Internal): Present: Normal Inspection Neck: Present: Normal Range of Motion Respiratory/Chest: Present: Clear to Auscultation, Good Air Exchange Cardiovascular: Present: Regular Rate and Rhythm Abdomen: No: Tenderness, Distention, Normal Bowel Sounds, Peritoneal Signs, Rebound, Guarding, McBurney's Point Tender, Rovsing's Sign Present, Hernias, Feeding Tubes, Ostomy Tubes, Mass/Organomegaly, Scars, Other Back: Present: Normal Inspection Upper Extremity: Present: Normal Inspection Lower Extremity: Present: Normal Inspection Neurological: Present: GCS=15, CN II-XII Intact, Speech Normal Skin: Present: Warm, Normal Color Psychiatric: Present: Alert, Oriented x 3 Medical Decision Making ED Course and Treatment: you were treated in the ED today for chest pain otherwise without any nausea/ vomiting/headache/dizziness/difficulty breathing/chest pain/abdomen pain/ numbness/tingling/loss of limb function/pain with urination/travel/prior blood clots/prior cancer history/thoughts to harm yourself or others or hallucinations. recent control use. stopped smoking and marijuana use. You were otherwise breathing easily, smiling with your, good strength/sensation , walking easily, clear lungs, no abdomen tenderness, no fever temp 98.4, stable heart rate 89, stable breathing rate 18, excellent oxygen level 100% room air, elevated blood pressure 129/73 which we recommend repeat in 2-3 days primary care office to determine further treatment, you have no infection count on blood test, stable blood level, normal heart blood test, low risk blood clot tests, negative test, urine test with trace findings but you have no pain with urination thus no acute sign of infection, ECG normal sinus rhythm, chest xray no acute findings, motrin done in the ED with improvement, counselled to stop smoking, using marijuana and thus discharged home. 1. Recommend followup primary care 2-3 days to review symptoms, referral to cardiology clinic. 4. If any worsening pain, fever, chills, nausea, vomiting, difficulty breathing, numbness, loss of limb function, pain with urination or any medical condition then return to the ED. 08/12/17 14:12 08/12/17 15:19 Reassessment Condition: Re-examined - Lab Interpretations Lab Results: 08/12/17 12:13 08/12/17 12:13 Lab Results 08/12/17 12:30: Urine Color Yellow, Urine Appearance Clear, Urine pH 7.0, Ur Specific [place] 1.015, Urine Protein Negative, Urine Glucose (UA) Negative, Urine Ketones Negative, Urine Blood Trace-intact H, Urine Nitrate Negative, Urine Bilirubin Negative, Urine Urobilinogen 1.0 H, Ur Leukocyte Esterase Trace H, Urine RBC 5 - 10, Urine WBC 2 - 5, Ur Epithelial Cells 6 - 8, Amorphous Sediment Few, Urine Bacteria Many 08/12/17 12:30: PT 12.4, INR 1.12 H, APTT 30.5, D-Dimer, Quantitative < 200 08/12/17 12:13: Troponin I < 0.01 08/12/17 12:13: Sodium 141, Potassium 3.9, Chloride 106, Carbon Dioxide 27, Anion Gap 12, BUN 7, Creatinine 0.8, Est GFR ( Amer) > 60, Est GFR (Non- Af Amer) > 60, Random Glucose 95, Calcium 9.5, Total Bilirubin 0.8, AST 21, ALT 20, Alkaline Phosphatase 86, Total Protein 7.2, Albumin 3.8, Globulin 3.4, Albumin/Globulin Ratio 1.1 08/12/17 12:13: WBC 7.4, RBC 4.75, Hgb 13.1, Hct 38.8, MCV 81.7, MCH 27.6, MCHC 33.8, RDW 13.9, Plt Count 288, MPV 9.8, Gran % 62.5, Lymph % (Auto) 23.4, [place] % (Auto) 9.9 H, Eos % (Auto) 3.8, Baso % (Auto) 0.4, Gran # 4.63, Lymph # 1.7, [place] # 0.7 H, Eos # 0.3, Baso # 0.03 I have reviewed the lab results: Yes Interpretation: All labs normal - RAD Interpretation Radiology Orders: 08/12/17 13:59 CHEST TWO VIEWS (PA/LAT) [RAD] Stat - EKG Interpretation Interpreted by ED Physician: Yes (NSR, flipped t wave avr, v1) Type: 12 lead EKG - Medication Orders Current Medication Orders: Discontinued Medications Ibuprofen (Motrin Tab) 800 mg PO STAT STA Stop: 08/12/17 12:18 Last Admin: 08/12/17 12:39 Dose: 800 mg Disposition/Present on Arrival - Present on Arrival Any Indicators Present on Arrival: No History of DVT/PE: No History of Uncontrolled Diabetes: No Urinary Catheter: No History of Decub. Ulcer: No History Surgical Site Infection Following: None - Disposition Have Diagnosis and Disposition been Completed?: Yes Diagnosis: Chest pain Disposition: HOME/ ROUTINE Disposition Time: 15:22 Patient Problems: Current Active Problems Problem Status Onset Chest pain Acute Condition: IMPROVED Discharge Instructions (ExitCare): Chest Pain (ED) Additional Instructions: you were treated in the ED today for chest pain otherwise without any nausea/ vomiting/headache/dizziness/difficulty breathing/chest pain/abdomen pain/ numbness/tingling/loss of limb function/pain with urination/travel/prior blood clots/prior cancer history/thoughts to harm yourself or others or hallucinations. recent control use. stopped smoking and marijuana use. You were otherwise breathing easily, smiling with your, good strength/sensation , walking easily, clear lungs, no abdomen tenderness, no fever temp 98.4, stable heart rate 89, stable breathing rate 18, excellent oxygen level 100% room air, elevated blood pressure 129/73 which we recommend repeat in 2-3 days primary care office to determine further treatment, you have no infection count on blood test, stable blood level, normal heart blood test, low risk blood clot tests, negative test, urine test with trace findings but you have no pain with urination thus no acute sign of infection, ECG normal sinus rhythm, chest xray no acute findings, motrin done in the ED with improvement, counselled to stop smoking, using marijuana and thus discharged home. 1. Recommend followup primary care 2-3 days to review symptoms, referral to cardiology clinic. 4. If any worsening pain, fever, chills, nausea, vomiting, difficulty breathing, numbness, loss of limb function, pain with urination or any medical condition then return to the ED. Referrals: Ophelia Escobar MD [Primary Care Provider] - Follow up with primary Forms: [employer] (Tristanian)
--- NOTE | 2017-08-12 14:50 | RAD ---
HISTORY: Chest pain. COMPARISON: Item TECHNIQUE: Chest PA and lateral FINDINGS: LUNGS: No active pulmonary disease. PLEURA: No significant pleural effusion identified. No pneumothorax apparent. CARDIOVASCULAR: Normal. OSSEOUS STRUCTURES: No significant abnormalities. VISUALIZED UPPER ABDOMEN: Normal. OTHER FINDINGS: None. IMPRESSION: No active disease.
[2017-08-12 15:03] VITALS: BP 122/65; PULSE 78
--- NOTE | 2017-08-12 16:16 | CARD ---
APPROVED REPORT EKG Measurement Heart [id number] <Conclusion> Normal sinus rhythm with sinus arrhythmia Normal ECG
== END 2017-08-12 15:37 | disposition home or self-care (01) ==
LOC: ED 11:55
DX: R07.9 Chest pain, unspecified (principal); Z88.0 Allergy status to penicillin

== ENCOUNTER 2018-01-24 17:47 | Emergency (ER) | payer OTHER ==
[2018-01-24 18:04] VITALS: BP 120/80; PULSE 86; RESP 18; TEMP 98.1; BMI 28.3
[2018-01-24] MEDS ORDERED: Sodium Chloride 0.9% 1,000 ML IV STA (18:30)
[2018-01-24 19:43] LABS: BASO # 0.02 K/mm3 (0.0-2.0); BASO % 0.2 % (0.0-3.0); EOS # 0.1 (0.0-0.7); EOS % 1.5 % (1.5-5.0); GRAN # 6.17 (1.4-6.5); GRAN % 66.1 % (50.0-68.0); HEMOGLOBIN 13.1 g/dL (12.0-16.0); LYMPH # 2.2 (1.2-3.4); LYMPH % 23.5 % (22.0-35.0); MEAN CELL VOLUME 80.5 fl (80.0-105.0); MEAN CORPUSCULAR HEMOGLOBIN 27.8 pg (25.0-35.0); MEAN CORPUSCULAR HGB CONC 34.5 g/dl (31.0-37.0); MEAN PLATELET VOLUME 10.2 fl (7.0-11.0); MONO # 0.8 (0.1-0.6); MONO % 8.7 % (1.0-6.0); RBC 4.72 10^6/uL (3.5-6.1); RED CELL DISTRIBUTION WIDTH 13.9 % (11.5-14.5); WHITE BLOOD COUNT 9.3 10^3/ul (4.5-11.0)
[2018-01-24 19:44] LABS: URINE BILIRUBIN NEGATIVE (NEGATIVE); URINE BLOOD SMALL (NEGATIVE); URINE GLUCOSE (UA) NEGATIVE (NEGATIVE); URINE LEUKOCYTE ESTERASE NEGATIVE Leu/uL (NEGATIVE); URINE PROTEIN TRACE mg/dL (<30 mg/dL); URINE UROBILINOGEN 0.2 E.U./dL (<1 E.U./dL)
[2018-01-24 19:48] LABS: URINE APPEARANCE CLEAR (CLEAR); URINE COLOR YELLOW (YELLOW)
[2018-01-24 20:03] LABS: ALB/GLOB RATIO 1.2 (1.1-1.8); ALT/SGPT 26 U/L (7-56); AST/SGOT 30 U/L (14-36); BLOOD UREA NITROGEN 8 mg/dL (7-21); CALCIUM 9.7 mg/dL (8.4-10.5); GFR AFRICAN-AMERICAN > 60; GFR NON-AFRICAN AMERICAN > 60; LIPASE 36 U/L (23-300)
[2018-01-24 20:16] LABS: URINE BACTERIA MOD (NEG)
--- NOTE | 2018-01-24 20:18 | ED PDOC ---
Arrival/HPI - General Historian: Patient - History of Present Illness Time/Duration: Other (1 Day) Symptom Onset: Sudden Symptom Course: Unchanged Activities at Onset: Rest, Light Context: Home <SkinnyirmaSuzie T - Last Filed: 01/24/18 20:54> <Nito Enciso T - Last Filed: 01/24/18 21:40> - General Chief Complaint: GI Problem Time Seen by Provider: 01/24/18 18:30 - History of Present Illness Narrative History of Present Illness (Text): 01/24/18 20:14 A 22 year old female, with no significant past medical history, presents to the emergency department for a complaint of 1 day duration diffuse abdominal pain. The patient believes that her symptoms started after eating [place] food. The patient notes that she has been having diarrhea since yesterday and complains of subjective fever and chills. She describes the discomfort as cramping and non - radiating. The patient denies headache, dizziness, chest pain, shortness of breath, dyspnea on exertion, cough, vomiting, back pain, neck pain, urinary/ bowel changes, or any other complaint. PMD: Dr. Arpit Escobar (Suzie Soto) Past Medical History - Provider Review Nursing Documentation Reviewed: Yes - Past History Past History: No Previous - Infectious Disease Hx of Infectious Diseases: None - Tetanus Immunization Tetanus Immunization: Unknown - Cardiac Hx Cardiac Disorders: No Hx Angina: No Hx Atrial Fibrillation: No Hx Cardiac Arrhythmia: No Hx Circulatory Problems: No Hx Congestive Heart Failure: No Hx PR: No Hx Heart Murmur: No Hx Heart Transplant: No Hx Hypertension: No Hx Hypotension: No Hx Internal Defibrillator: No Hx Mitral Valve Prolapse: No Hx Pacemaker: No Hx Peripheral Edema: No Hx Peripheral Vascular Disease: No - Pulmonary Hx Respiratory Disorders: No Hx Asthma: No Hx Bronchitis: No Hx Chronic Obstructive Pulmonary Disease (COPD): No Hx Emphysema: No Hx Lung Cancer: No Hx Pneumonia: No Hx Pulmonary Edema: No Hx Pulmonary Embolism: No Hx Respiratory Aspiration: No Hx Respiratory Tract Infection: No Hx Sleep Apnea: No Hx Tuberculosis: No - Neurological Hx Neurological Disorder: No - HEENT Hx HEENT Disorder: No - Renal Hx Renal Disorder: No - Endocrine/Metabolic Hx Endocrine Disorders: No - Hematological/Oncological Hx Blood Disorders: No - Integumentary Hx Dermatological Disorder: No - Musculoskeletal/Rheumatological Hx Musculoskeletal Disorders: No - Gastrointestinal Hx Gastrointestinal Disorders: No - Genitourinary/Gynecological Hx Sexually Transmitted Diseases: No - Psychiatric Hx Bipolar Disorder: No Hx Substance Use: Yes (marijuana) - Anesthesia Hx Anesthesia: No <Suzie Soto T - Last Filed: 01/24/18 20:54> Family/Social History - Physician Review Nursing Documentation Reviewed: Yes Family/Social History: No Known Family HX Smoking Status: Former Smoker Hx Alcohol Use: Yes Hx Substance Use: Yes (marijuana) <Suzie Soto T - Last Filed: 01/24/18 20:54> Allergies/Home Meds <Suzie Soto T - Last Filed: 01/24/18 20:54> <Nito Enciso T - Last Filed: 01/24/18 21:40> Allergies/Adverse Reactions: Allergies Penicillins Allergy (Verified 01/24/18 18:09) ANAPHYLAXIS Review of Systems - Physician Review All systems were reviewed & negative as marked: Yes - Review of Systems Constitutional: Fevers Respiratory: absent: SOB, Cough Cardiovascular: absent: Chest Pain, RODRIGUEZ Gastrointestinal: Abdominal Pain, Diarrhea. absent: Vomiting Genitourinary Female: absent: Urine Output Changes Musculoskeletal: absent: Back Pain, Neck Pain Neurological: absent: Headache, Dizziness <Suzie Soto T - Last Filed: 01/24/18 20:54> Physical Exam Vital Signs Reviewed: Yes Temperature: Afebrile Blood Pressure: Normal Pulse: Regular Respiratory Rate: Normal Appearance: Positive for: Well-Appearing, Non-Toxic Pain Distress: None Mental Status: Positive for: Alert and Oriented X 3 - Systems Exam Head: Present: Atraumatic, Normocephalic Pupils: Present: PERRL Extroacular Muscles: Present: EOMI Conjunctiva: Present: Normal Mouth: Present: Moist Mucous Membranes Neck: Present: Normal Range of Motion Respiratory/Chest: Present: Clear to Auscultation, Good Air Exchange. No: Respiratory Distress, Accessory Muscle Use Cardiovascular: Present: Regular Rate and Rhythm, Normal S1, S2. No: Murmurs Abdomen: Present: Tenderness (Diffuse lower abdominal tenderness. ). No: Rebound, Guarding Back: Present: Normal Inspection. No: CVA Tenderness Upper Extremity: Present: Normal Inspection, Normal ROM. No: Cyanosis, Edema Lower Extremity: Present: Normal Inspection, Normal ROM. No: Edema Neurological: Present: GCS=15, CN II-XII Intact, Speech Normal Skin: Present: Warm, Dry, Normal Color. No: Rashes Psychiatric: Present: Alert, Oriented x 3, Normal Insight, Normal Concentration <Suzie Soto - Last Filed: 01/24/18 20:54> Vital Signs Temp Pulse Resp BP Pulse Ox 01/24/18 17:49 98.1 F 86 18 120/80 100 Medical Decision Making <Suzie Soto - Last Filed: 01/24/18 20:54> <Nito Enciso - Last Filed: 01/24/18 21:40> ED Course and Treatment: 01/24/18 20:19 A 22 year old female presents to the emergency department for a complaint of 1 day duration diffuse abdominal pain. Patient is nontoxic well appearing with stable vital signs CBC wnl CMP wnl Lipase: wnl Urinalysis: wnl CAT scan: pending 01/24/18 20:54 case signed out to dr ENCSIO pending CT and re-evaluation and disposition. (Suzie Soto) - Lab Interpretations Lab Results: 01/24/18 19:25 01/24/18 19:25 Lab Results 01/24/18 19:25: WBC 9.3 D, RBC 4.72, Hgb 13.1, Hct 38.0, MCV 80.5, MCH 27.8, MCHC 34.5, RDW 13.9, Plt Count 307, MPV 10.2, Gran % 66.1, Lymph % (Auto) 23.5, [place] % (Auto) 8.7 H, Eos % (Auto) 1.5, Baso % (Auto) 0.2, Gran # 6.17, Lymph # ( Auto) 2.2, [place] # (Auto) 0.8 H, Eos # (Auto) 0.1, Baso # (Auto) 0.02 01/24/18 19:25: Sodium 143, Potassium 4.2, Chloride 105, Carbon Dioxide 27, Anion Gap 16, BUN 8, Creatinine 0.7, Est GFR ( Amer) > 60, Est GFR (Non- Af Amer) > 60, Random Glucose 95, Calcium 9.7, Total Bilirubin 0.8, AST 30, ALT 26, Alkaline Phosphatase 72, Total Protein 7.4, Albumin 4.0, Globulin 3.4, Albumin/Globulin Ratio 1.2, Lipase 36 01/24/18 19:25: Urine Color Yellow, Urine Appearance Clear, Urine pH 6.0, Ur Specific [place] 1.025, Urine Protein Trace H, Urine Glucose (UA) Negative, Urine Ketones Trace H, Urine Blood Small H, Urine Nitrate Negative, Urine Bilirubin Negative, Urine Urobilinogen 0.2, Ur Leukocyte Esterase Negative, Urine RBC 1 - 3, Urine WBC 1 - 3, Ur Epithelial Cells 3 - 4, Urine Bacteria Mod - RAD Interpretation Radiology Orders: 01/24/18 18:51 ABD & PELVIS IV CONTRAST ONLY [CT] Stat - Medication Orders Current Medication Orders: Discontinued Medications Sodium Chloride (Sodium Chloride 0.9%) 1,000 mls @ 999 mls/hr IV .Q1H1M STA Stop: 01/24/18 19:30 Last Admin: 01/24/18 19:30 Dose: 999 mls/hr eMAR Start Stop Document 01/24/18 19:30 SS (Rec: 01/24/18 19:30 SS [id number]) Intravenous Solution Start Date 01/24/18 Start Time 19:30 End Date 01/24/18 End time 20:30 Total Infusion Time 60 Ketorolac Tromethamine (Toradol) 30 mg IVP STAT STA Stop: 01/24/18 20:31 Last Admin: 01/24/18 21:06 Dose: 30 mg MAR Pain Assessment Document 01/24/18 21:06 SS (Rec: 01/24/18 21:06 SS [id number]) Pain Reassessment Is this a pain reassessment? No Sleep Is patient sleeping during reassessment? No Presence of Pain Presence of Pain Yes Pain Scale Used Pain Scale Used Numeric IVP Administration Document 01/24/18 21:06 SS (Rec: 01/24/18 21:06 SS [id number]) Charges for Administration # of IVP Administrations 1 - Scribe Statement The provider has reviewed the documentation as recorded by the Scribe <Suzie Soto T - Last Filed: 01/24/18 20:54> <Nito Enciso T - Last Filed: 01/24/18 21:40> - Scribe Statement Norma Capps Provider Scribe Attestation: All medical record entries made by the Scribe were at my direction and personally dictated by me. I have reviewed the chart and agree that the record accurately reflects my personal performance of the history, physical exam, medical decision making, and the department course for this patient. I have also personally directed, reviewed, and agree with the discharge instructions and disposition. (Suzie Soto) Disposition/Present on Arrival - Present on Arrival History of DVT/PE: No History of Uncontrolled Diabetes: No Urinary Catheter: No History of Decub. Ulcer: No History Surgical Site Infection Following: None <Suzie Soto - Last Filed: 01/24/18 20:54> - Present on Arrival Any Indicators Present on Arrival: No - Disposition Have Diagnosis and Disposition been Completed?: Yes Disposition Time: 21:39 Patient Plan: Discharge <Nito Enciso - Last Filed: 01/24/18 21:40> - Disposition Diagnosis: Abdominal pain Disposition: HOME/ ROUTINE Condition: STABLE Discharge Instructions (ExitCare): Acute Abdomen (Belly Pain) Additional Instructions: EXAM: CT Abdomen and Pelvis With Intravenous Contrast CLINICAL HISTORY: 22 years old, female; Pain; Abdominal pain; Acute; Additional info: Abd pain TECHNIQUE: Axial computed tomography images of the abdomen and pelvis with intravenous contrast. All CT scans at this facility use one or more dose reduction techniques, viz.: automated exposure control; ma/kV adjustment per patient size (including targeted exams where dose is matched to indication; i.e. head); or iterative reconstruction technique. Coronal and sagittal reformatted images were created and reviewed. CONTRAST: 100 mL of OMNI 350 administered intravenously. COMPARISON: CT - ABD PELVIS IV CONTRAST ONLY 2017-05-28 23:49 FINDINGS: Limitations: Motion artifact - mild. Lung bases: Minimal atelectasis/scarring. ABDOMEN: Liver: Unremarkable. No mass. Gallbladder and bile ducts: Cholecystectomy. No significant ductal dilation. Pancreas: No ductal dilation. No mass. Spleen: No splenomegaly. Adrenals: No mass. Kidneys and ureters: 1.0 cm lesion with small mural calcification within LEFT kidney, indeterminate by CT criteria. No hydronephrosis. Stomach and bowel: No definite mural thickening. No obstruction. PELVIS: Appendix: Normal caliber. No inflammation. Bladder: Unremarkable. Reproductive: Unremarkable as visualized. ABDOMEN and PELVIS: Intraperitoneal space: No significant fluid collection. No free air. Bones/joints: No acute fracture. Soft tissues: Unremarkable. Vasculature: Unremarkable. No aneurysm. Lymph nodes: No pathologically enlarged lymph nodes. IMPRESSION: 1. No definite acute intraabdominal abnormality. 2. Kidney lesion, incompletely characterized. Recommend nonemergent ultrasound or MRI. 3. Incidental/non-acute findings are described above. Dictated By: Rich Villarreal MD Dictated Date/Time: 01/24/182131 Signed By: Rich Villarreal MD Date Signed: 2131 Transcribed By: BOB Transcribe Date/Time : 01/24/182131 Referrals: Ophelia Escobar MD [Primary Care Provider] - Follow up with primary Forms: [employer] ([place])
[2018-01-24] MEDS ORDERED: Iohexol 350 MG/100 ML VIAL ONE (20:21)
--- NOTE | 2018-01-24 21:33 | CT ---
EXAM: CT Abdomen and Pelvis With Intravenous Contrast CLINICAL HISTORY: 22 years old, female; Pain; Abdominal pain; Acute; Additional info: Abd pain TECHNIQUE: Axial computed tomography images of the abdomen and pelvis with intravenous contrast. All CT scans at this facility use one or more dose reduction techniques, viz.: automated exposure control; ma/kV adjustment per patient size (including targeted exams where dose is matched to indication; i.e. head); or iterative reconstruction technique. Coronal and sagittal reformatted images were created and reviewed. CONTRAST: 100 mL of OMNI 350 administered intravenously. COMPARISON: CT - ABD PELVIS IV CONTRAST ONLY 2017-05-28 23:49 FINDINGS: Limitations: Motion artifact - mild. Lung bases: Minimal atelectasis/scarring. ABDOMEN: Liver: Unremarkable. No mass. Gallbladder and bile ducts: Cholecystectomy. No significant ductal dilation. Pancreas: No ductal dilation. No mass. Spleen: No splenomegaly. Adrenals: No mass. Kidneys and ureters: 1.0 cm lesion with small mural calcification within LEFT kidney, indeterminate by CT criteria. No hydronephrosis. Stomach and bowel: No definite mural thickening. No obstruction. PELVIS: Appendix: Normal caliber. No inflammation. Bladder: Unremarkable. Reproductive: Unremarkable as visualized. ABDOMEN and PELVIS: Intraperitoneal space: No significant fluid collection. No free air. Bones/joints: No acute fracture. Soft tissues: Unremarkable. Vasculature: Unremarkable. No aneurysm. Lymph nodes: No pathologically enlarged lymph nodes. IMPRESSION: 1. No definite acute intraabdominal abnormality. 2. Kidney lesion, incompletely characterized. Recommend nonemergent ultrasound or MRI. 3. Incidental/non-acute findings are described above.
[2018-01-24 21:55] VITALS: O2SAT 98
== END 2018-01-24 21:54 | disposition home or self-care (01) ==
LOC: ED 17:47
DX: R10.9 Unspecified abdominal pain (principal)
CPT/HCPCS: 74177; 80053; 81001; 83690; 85025; 96361; 96374; 99283; J1885; J7040; Q9967

== ENCOUNTER 2018-01-26 05:32 | Emergency (ER) | payer OTHER ==
[2018-01-26 05:33] VITALS: BMI 31.0
--- NOTE | 2018-01-26 05:59 | ED PDOC ---
Arrival/HPI - General Chief Complaint: Back Pain Time Seen by Provider: 01/26/18 05:36 Historian: Patient - History of Present Illness Narrative History of Present Illness (Text): 01/26/18 05:56 Claire Hastings is a 22 year old female who presents to the Emergency department complaining of abdominal pain tonight. Patient states she has been experiencing lower abdominal pain and lower back pain tonight. Patient states she recently seen on 01/24/2018 for diffuse abdominal pain and told it was a viral infection. Patient had a CT Abdomen and Pelvis performed which showed a 1.0 cm left kidney lesion but was otherwise grossly normal. Patient denies any fever, chills, chest pain, shortness of breath, nausea, vomiting, diarrhea, urinary symptoms, neck pain, headache, dizziness, or any other complaints. Time/Duration: Other (today) Symptom Onset: Gradual Symptom Course: Unchanged Activities at Onset: Light Context: Work Past Medical History - Provider Review Nursing Documentation Reviewed: Yes - Past History Past History: No Previous - Infectious Disease Hx of Infectious Diseases: None - Tetanus Immunization Tetanus Immunization: Unknown - Cardiac Hx Cardiac Disorders: No Hx Angina: No Hx Atrial Fibrillation: No Hx Cardiac Arrhythmia: No Hx Circulatory Problems: No Hx Congestive Heart Failure: No Hx TN: No Hx Heart Murmur: No Hx Heart Transplant: No Hx Hypertension: No Hx Hypotension: No Hx Internal Defibrillator: No Hx Mitral Valve Prolapse: No Hx Pacemaker: No Hx Peripheral Edema: No Hx Peripheral Vascular Disease: No - Pulmonary Hx Respiratory Disorders: No Hx Asthma: No Hx Bronchitis: No Hx Chronic Obstructive Pulmonary Disease (COPD): No Hx Emphysema: No Hx Lung Cancer: No Hx Pneumonia: No Hx Pulmonary Edema: No Hx Pulmonary Embolism: No Hx Respiratory Aspiration: No Hx Respiratory Tract Infection: No Hx Sleep Apnea: No Hx Tuberculosis: No - Neurological Hx Neurological Disorder: No - HEENT Hx HEENT Disorder: No - Renal Hx Renal Disorder: No - Endocrine/Metabolic Hx Endocrine Disorders: No - Hematological/Oncological Hx Blood Disorders: No - Integumentary Hx Dermatological Disorder: No - Musculoskeletal/Rheumatological Hx Musculoskeletal Disorders: No - Gastrointestinal Hx Gastrointestinal Disorders: No - Genitourinary/Gynecological Hx Sexually Transmitted Diseases: No - Psychiatric Hx Bipolar Disorder: No Hx Substance Use: Yes (marijuana) - Anesthesia Hx Anesthesia: No Family/Social History - Physician Review Nursing Documentation Reviewed: Yes Family/Social History: Unknown Family HX Smoking Status: Former Smoker Hx Alcohol Use: Yes Hx Substance Use: Yes (marijuana) Allergies/Home Meds Allergies/Adverse Reactions: Allergies Penicillins Allergy (Verified 01/24/18 18:09) ANAPHYLAXIS Review of Systems - Physician Review All systems were reviewed & negative as marked: Yes - Review of Systems Constitutional: Normal. absent: Fevers Eyes: Normal ENT: Normal Respiratory: Normal. absent: SOB, Cough Cardiovascular: Normal. absent: Chest Pain Gastrointestinal: Abdominal Pain. absent: Diarrhea, Vomiting Genitourinary Female: Normal. absent: Dysuria, Frequency, Hematuria, Urine Output Changes Musculoskeletal: Back Pain. absent: Neck Pain Skin: Normal. absent: Rash Neurological: Normal. absent: Headache, Dizziness Endocrine: Normal Hemo/Lymphatic: Normal Psychiatric: Normal Physical Exam Vital Signs Reviewed: Yes Vital Signs Temp Pulse Resp BP Pulse Ox 01/26/18 08:34 98.0 F 81 19 129/68 100 01/26/18 08:29 98.1 F 81 18 129/68 100 01/26/18 05:45 98.0 F 88 18 126/77 98 Temperature: Afebrile Blood Pressure: Normal Pulse: Regular Respiratory Rate: Normal Appearance: Positive for: Well-Appearing, Non-Toxic, Comfortable Pain Distress: None Mental Status: Positive for: Alert and Oriented X 3 - Systems Exam Head: Present: Atraumatic, Normocephalic Pupils: Present: PERRL Extroacular Muscles: Present: EOMI Conjunctiva: Present: Normal Mouth: Present: Moist Mucous Membranes Neck: Present: Normal Range of Motion Respiratory/Chest: Present: Clear to Auscultation, Good Air Exchange. No: Respiratory Distress, Accessory Muscle Use Cardiovascular: Present: Regular Rate and Rhythm, Normal S1, S2. No: Murmurs Abdomen: No: Tenderness, Distention, Peritoneal Signs Back: Present: Normal Inspection Upper Extremity: Present: Normal Inspection. No: Cyanosis, Edema Lower Extremity: Present: Normal Inspection. No: Edema Neurological: Present: GCS=15, CN II-XII Intact, Speech Normal Skin: Present: Warm, Dry, Normal Color. No: Rashes Psychiatric: Present: Alert, Oriented x 3, Normal Insight, Normal Concentration Medical Decision Making ED Course and Treatment: 01/26/18 05:57 Impression: 22 year old female complaining of lower abdominal pain and lower back pain. Plan: -- US Renal -- Labs -- UA -- Toradol -- Reassess and disposition Prior Visits: Notes and results from previous visits were reviewed. On 01/24/2018, pt was seen for for diffuse abdominal pain and had a CT Abdomen and Pelvis performed. Results showed: 1. No definite acute intraabdominal abnormality. 2. Kidney lesion, incompletely characterized. Recommend nonemergent ultrasound or MRI. 3. Incidental/non-acute findings are described above. Pt was d/c home. Progress Notes: - Lab Interpretations Lab Results: 01/26/18 06:33 01/26/18 06:33 Lab Results 01/26/18 07:30: Urine Color Yellow, Urine Appearance Clear, Urine pH 6.0, Ur Specific [place] 1.025, Urine Protein Trace H, Urine Glucose (UA) Negative, Urine Ketones 15 H, Urine Blood Trace-intact H, Urine Nitrate Negative, Urine Bilirubin Negative, Urine Urobilinogen 0.2, Ur Leukocyte Esterase Negative, Urine RBC 2 - 5, Urine WBC 0 - 2, Ur Epithelial Cells 6 - 8, Urine Bacteria Many , Coarse Granular Casts Trace H, Urine Other [place] 01/26/18 06:33: Sodium 143, Potassium 3.6, Chloride 105, Carbon Dioxide 26, Anion Gap 15, BUN 6 L, Creatinine 0.8, Est GFR ( Amer) > 60, Est GFR (Non -Af Amer) > 60, Random Glucose 110, Calcium 9.4, Total Bilirubin 0.6, AST 43 H D , ALT 27, Alkaline Phosphatase 65, Total Protein 7.5, Albumin 4.0, Globulin 3.5 , Albumin/Globulin Ratio 1.1 01/26/18 06:33: WBC 8.2, RBC 4.69, Hgb 13.0, Hct 37.8, MCV 80.6, MCH 27.7, MCHC 34.4, RDW 14.0, Plt Count 307, MPV 10.0, Gran % 76.8 H, Lymph % (Auto) 15.3 L, [place] % (Auto) 6.1 H, Eos % (Auto) 1.7, Baso % (Auto) 0.1, Gran # 6.33, Lymph # ( Auto) 1.3, [place] # (Auto) 0.5, Eos # (Auto) 0.1, Baso # (Auto) 0.01 - RAD Interpretation Radiology Orders: 01/26/18 06:06 RENAL [US] Stat - Medication Orders Current Medication Orders: Discontinued Medications Ketorolac Tromethamine (Toradol) 30 mg IVP ONCE ONE Stop: 01/26/18 06:07 Last Admin: 01/26/18 06:37 Dose: 30 mg MAR Pain Assessment Document 01/26/18 06:37 CINDY (Rec: 01/26/18 06:38 CINDY [id number]) Pain Reassessment Is this a pain reassessment? No IVP Administration Document 01/26/18 06:37 CINDY (Rec: 01/26/18 06:38 CINDY [id number]) Charges for Administration # of IVP Administrations 1 - Transfer of Care Patient signed out to Dr:: leigh and dispo - Scribe Statement The provider has reviewed the documentation as recorded by the Scribe Elizabeth Elias All medical record entries made by the Scribe were at my direction and personally dictated by me. I have reviewed the chart and agree that the record accurately reflects my personal performance of the history, physical exam, medical decision making, and the department course for this patient. I have also personally directed, reviewed, and agree with the discharge instructions and disposition. Disposition/Present on Arrival - Present on Arrival Any Indicators Present on Arrival: No History of DVT/PE: No History of Uncontrolled Diabetes: No Urinary Catheter: No History of Decub. Ulcer: No History Surgical Site Infection Following: None - Disposition Have Diagnosis and Disposition been Completed?: Yes Diagnosis: Kidney stone, Yeast infection Disposition: HOME/ ROUTINE Disposition Time: 07:00 Condition: IMPROVED Discharge Instructions (ExitCare): Kidney Stones in Adults Additional Instructions: Ms Hi, thank you for letting us take care of you today. Your provider was Dr. Figueroa. You were treated for Kidney Stone, Yeast infection. The emergency medical care you received today was directed at your acute symptoms. If you were prescribed any medication, please fill it and take as directed. It may take several days for your symptoms to resolve. Return to the Emergency Department if your symptoms worsen, do not improve, or if you have any other problems. Please contact your doctor or call one of the physicians/clinics you have been referred to that are listed on the Patient Visit Information form that is included in your discharge packet. Bring any paperwork you were given at discharge with you along with any medications you are taking to your follow up visit. Our treatment cannot replace ongoing medical care by a primary care provider (PCP) outside of the emergency department. Thank you for allowing the [facility] team to be part of your care today. If you had an X-Ray or CT scan: A Radiologist will review the ED reading if any change in treatment is needed we will contact you. If you had a blood, urine, or wound culture: It will take several days for the results, if any change in treatment is needed we will contact you. If you had an STI test: It will take 48 hours for the results. Please call after 1 week if you have not heard back. Prescriptions: Clotrimazole 1% Vaginal [Lotrimin 1% Vaginal] 1 applic VG HS #1 tube Ibuprofen [Motrin] 600 mg PO Q6 PRN #30 tab PRN Reason: Pain, Moderate (4-7) Referrals: [facility] [place] [Outside] - Follow up with primary Arpan Moss MD [Staff Provider] - Follow up with primary Forms: [employer] ([place]ic), WORK NOTE
[2018-01-26 06:45] LABS: BASO # 0.01 K/mm3 (0.0-2.0); BASO % 0.1 % (0.0-3.0); EOS # 0.1 (0.0-0.7); EOS % 1.7 % (1.5-5.0); GRAN # 6.33 (1.4-6.5); GRAN % 76.8 % (50.0-68.0); LYMPH # 1.3 (1.2-3.4); LYMPH % 15.3 % (22.0-35.0); MEAN CELL VOLUME 80.6 fl (80.0-105.0); MEAN CORPUSCULAR HEMOGLOBIN 27.7 pg (25.0-35.0); MEAN CORPUSCULAR HGB CONC 34.4 g/dl (31.0-37.0); MONO # 0.5 (0.1-0.6); MONO % 6.1 % (1.0-6.0); RBC 4.69 10^6/uL (3.5-6.1); WHITE BLOOD COUNT 8.2 10^3/ul (4.5-11.0)
[2018-01-26 07:14] LABS: ALB/GLOB RATIO 1.1 (1.1-1.8); ALT/SGPT 27 U/L (7-56); AST/SGOT 43 U/L (14-36); BLOOD UREA NITROGEN 6 mg/dL (7-21); CALCIUM 9.4 mg/dL (8.4-10.5); GFR AFRICAN-AMERICAN > 60; GFR NON-AFRICAN AMERICAN > 60
--- NOTE | 2018-01-26 07:16 | ED PDOC ---
Physical Exam Vital Signs Temp Pulse Resp BP Pulse Ox 01/26/18 05:45 98.0 F 88 18 126/77 98 Medical Decision Making ED Course and Treatment: 01/26/18 07:16 Patient endorsed to me by . Pending ultrasound. Ultrasound of the Kidneys: Creator : Jarrod Ash MD HISTORY: kidney pain TECHNIQUE: Sonogram of the kidneys. FINDINGS: RIGHT KIDNEY: Measures: 10.0 cm. Normal in size, contour and echogenicity. No stone, solid mass lesion or hydronephrosis visualized. LEFT KIDNEY: Measures: 10.7 cm. Normal in size, contour and echogenicity. Nonobstructing 9 mm upper pole calculus. No mass or hydronephrosis. OTHER FINDINGS: None. IMPRESSION: Nonobstructing 9 mm left upper pole renal calculus. No additional abnormality. 01/26/18 08:15 On re-evaluation, patient has no abdominal or back tenderness. I explained patient's US report and that her urinalysis was positive for yeast. Patient wishes to follow-up with a urologist and I will refer her to . Patient will be discharged. She was advised to return to the ED with any concerns. - Lab Interpretations Lab Results: 01/26/18 06:33 01/26/18 06:33 Lab Results 01/26/18 07:30: Urine Color Yellow, Urine Appearance Clear, Urine pH 6.0, Ur Specific [place] 1.025, Urine Protein Trace H, Urine Glucose (UA) Negative, Urine Ketones 15 H, Urine Blood Trace-intact H, Urine Nitrate Negative, Urine Bilirubin Negative, Urine Urobilinogen 0.2, Ur Leukocyte Esterase Negative, Urine RBC 2 - 5, Urine WBC 0 - 2, Ur Epithelial Cells 6 - 8, Urine Bacteria Many , Coarse Granular Casts Trace H, Urine Other Uyeast 01/26/18 06:33: Sodium 143, Potassium 3.6, Chloride 105, Carbon Dioxide 26, Anion Gap 15, BUN 6 L, Creatinine 0.8, Est GFR ( Amer) > 60, Est GFR (Non -Af Amer) > 60, Random Glucose 110, Calcium 9.4, Total Bilirubin 0.6, AST 43 H D , ALT 27, Alkaline Phosphatase 65, Total Protein 7.5, Albumin 4.0, Globulin 3.5 , Albumin/Globulin Ratio 1.1 05/24/18 06:33: WBC 8.2, RBC 4.69, Hgb 13.0, Hct 37.8, MCV 80.6, MCH 27.7, MCHC 34.4, RDW 14.0, Plt Count 307, MPV 10.0, Gran % 76.8 H, Lymph % (Auto) 15.3 L, Dixon % (Auto) 6.1 H, Eos % (Auto) 1.7, Baso % (Auto) 0.1, Gran # 6.33, Lymph # ( Auto) 1.3, Dixon # (Auto) 0.5, Eos # (Auto) 0.1, Baso # (Auto) 0.01 I have reviewed the lab results: Yes - RAD Interpretation Radiology Orders: 01/26/18 06:06 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 No IVP Administration Document 01/26/18 06:37 CINDY (Rec: 01/26/18 06:38 CINDY [id number]) Charges for Administration # of IVP Administrations 1 - Scribe Statement The provider has reviewed the documentation as recorded by the Scribjose antonio Trujillo Provider Scribe Attestation: All medical record entries made by the Scribe were at my direction and personally dictated by me. I have reviewed the chart and agree that the record accurately reflects my personal performance of the history, physical exam, medical decision making, and the department course for this patient. I have also personally directed, reviewed, and agree with the discharge instructions and disposition. Disposition/Present on Arrival - Present on Arrival Any Indicators Present on Arrival: No History of DVT/PE: No History of Uncontrolled Diabetes: No Urinary Catheter: No History of Decub. Ulcer: No History Surgical Site Infection Following: None - Disposition Have Diagnosis and Disposition been Completed?: Yes Diagnosis: Kidney stone, Yeast infection Disposition: HOME/ ROUTINE Disposition Time: 08:17 Patient Plan: Discharge Condition: IMPROVED Discharge Instructions (ExitCare): Kidney Stones in Adults Additional Instructions: Ms Hi, thank you for letting us take care of you today. Your provider was Dr. Figueroa. You were treated for Kidney Stone, Yeast infection. The emergency medical care you received today was directed at your acute symptoms. If you were prescribed any medication, please fill it and take as directed. It may take several days for your symptoms to resolve. Return to the Emergency Department if your symptoms worsen, do not improve, or if you have any other problems. Please contact your doctor or call one of the physicians/clinics you have been referred to that are listed on the Patient Visit Information form that is included in your discharge packet. Bring any paperwork you were given at discharge with you along with any medications you are taking to your follow up visit. Our treatment cannot replace ongoing medical care by a primary care provider (PCP) outside of the emergency department. Thank you for allowing the [facility] team to be part of your care today. If you had an X-Ray or CT scan: A Radiologist will review the ED reading if any change in treatment is needed we will contact you. If you had a blood, urine, or wound culture: It will take several days for the results, if any change in treatment is needed we will contact you. If you had an STI test: It will take 48 hours for the results. Please call after 1 week if you have not heard back. Prescriptions: Clotrimazole 1% Vaginal [Lotrimin 1% Vaginal] 1 applic VG HS #1 tube Ibuprofen [Motrin] 600 mg PO Q6 PRN #30 tab PRN Reason: Pain, Moderate (4-7) [place]: [facility] [place] - Follow up with primary Arpan Moss MD [Staff Provider] - Follow up with primary Forms: [employer] (Bengali), WORK NOTE
[2018-01-26 07:55] LABS: URINE BILIRUBIN NEGATIVE (NEGATIVE); URINE BLOOD TRACE-INTACT (NEGATIVE); URINE GLUCOSE (UA) NEGATIVE (NEGATIVE); URINE LEUKOCYTE ESTERASE NEGATIVE Leu/uL (NEGATIVE); URINE PROTEIN TRACE mg/dL (<30 mg/dL); URINE UROBILINOGEN 0.2 E.U./dL (<1 E.U./dL)
[2018-01-26 08:03] LABS: URINE APPEARANCE CLEAR (CLEAR); URINE COLOR YELLOW (YELLOW)
[2018-01-26 08:10] LABS: URINE WBC 0 - 2 /hpf (0-6)
[2018-01-26 08:11] LABS: URINE BACTERIA MANY (NEG); URINE COARSE GRANULAR CAST TRACE /hpf (0-2)
--- NOTE | 2018-01-26 08:12 | US ---
PROCEDURE: Ultrasound of the Kidneys HISTORY: kidney pain COMPARISON: None available. TECHNIQUE: Sonogram of the kidneys. FINDINGS: RIGHT KIDNEY: Measures: 10.0 cm. Normal in size, contour and echogenicity. No stone, solid mass lesion or hydronephrosis visualized. LEFT KIDNEY: Measures: 10.7 cm. Normal in size, contour and echogenicity. Nonobstructing 9 mm upper pole calculus. No mass or hydronephrosis. OTHER FINDINGS: None. IMPRESSION: Nonobstructing 9 mm left upper pole renal calculus. No additional abnormality.
[2018-01-26 08:30] VITALS: BP 129/68; PULSE 81; O2SAT 100
[2018-01-26 08:35] VITALS: RESP 19; TEMP 98
== END 2018-01-26 08:35 | disposition home or self-care (01) ==
LOC: ED 05:32
DX: N20.0 Calculus of kidney (principal); B37.9 Candidiasis, unspecified; Z87.891 Personal history of nicotine dependence
CPT/HCPCS: 76770; 80053; 81001; 85025; 96374; 99282; J1885